=== PATIENT | female | born 1955 | race Caucasian/White ===

== ENCOUNTER 2017-02-16 19:52 | Emergency (ER) | payer BC ==
[~2017-02-16] VITALS: Ht 160 cm; Wt 78.0 kg
[2017-02-16] MEDS ORDERED: CIPR-262 PO (20:04)
[2017-02-16] MEDS ORDERED: HYOS0.1273 PO (20:04)
--- NOTE | 2017-02-16 20:19 | NUR ---
Pt c/o lower Q ABD cramping pain, 06/27, [id number], tender in all Q's, and has nausea w/o vomiting, started around 1630 today. Pt has hx of similar episodes. Pt denies dizziness, CP, no other complaints, no distress noted but pt appears very anxious.
[2017-02-16] MEDS ORDERED: KETOROLAC TROMETHAMINE 15 MG INJ IV ONE (20:45)
[2017-02-16] MEDS ORDERED: IV NORMAL SALINE 1000 ML BAG IV ONE (20:45)
[2017-02-16] MEDS ORDERED: METOCLOPRAMIDE HCL 10 MG/2 ML VIAL IV ONE (20:45)
[2017-02-16 20:53] LABS: *BILIRUBIN,URIN NEGATIVE (NEGATIVE); *BLOOD, URINE 2+ (NEGATIVE); *CLARITY,URINE SLIGHTLY CLOUDY (CLEAR); *COLOR,URINE YELLOW (YELLOW); *KETONES,URINE NEGATIVE (NEGATIVE); *PROTEIN,URINE NEGATIVE (NEGATIVE); *UROBILINOGEN,URINE 0.2 E.U./dl (NORMAL); LEUKOCYTE ESTERASE ,URINE 1+ (NEGATIVE); NITRITE, URINE NEGATIVE (NEGATIVE); PH,URINE 5.5 (5.0-8.0); UGLUCOSE NEGATIVE (NEGATIVE)
[2017-02-16] MEDS ORDERED: KETOROLAC TROMETHAMINE 15 MG INJ ONE (21:07)
[2017-02-16] MEDS ORDERED: METOCLOPRAMIDE HCL 10 MG/2 ML VIAL ONE (21:07)
[2017-02-16] MEDS ORDERED: LORAZEPAM 2 MG/1 ML VIAL IV ONE (21:15)
[2017-02-16 21:18] LABS: ALANINE AMINOTRANSFERASE 17 U/L (14-59); ALKALINE PHOSPHATASE 92 U/L (50-136); ASPARTATE AMINOTRANSFERASE 20 U/L (15-37); BILIRUBIN,DIRECT < 0.1 mg/dL (0.0-0.2); BILIRUBIN,TOTAL 0.4 mg/dL (0.2-1.0); CARBON DIOXIDE 26 mmol/L (21-32); CHLORIDE 105 mmol/L (98-107); CREATININE 0.7 mg/dL (0.6-1.3); GLUCOSE 104 mg/dL (74-106); LIPASE 115 U/L (73-393); POTASSIUM 3.8 mmol/L (3.5-5.1); TOTAL PROTEIN, SERUM 7.8 g/dL (6.4-8.2); UREA NITROGEN, BLOOD 11 mg/dL (7-18)
[2017-02-16 21:19] LABS: BASOPHILS # (AUTO) 0.1 K/uL (0.0-8.0); BASOPHILS % (AUTO) 0.7 % (0.0-2.0); EOSINOPHILS # (AUTO) 0.2 K/uL (0.0-0.7); EOSINOPHILS % (AUTO) 1.8 % (0.0-7.0); HEMATOCRIT 44.7 % (37-47); LYMPHOCYTES # (AUTO) 2.4 K/UL (0.8-4.8); LYMPHOCYTES % (AUTO) 22.5 % (20.5-51.5); MEAN CORPUSCULAR HEMOGLOBIN 28.7 UUG (27.0-31.0); MEAN CORPUSCULAR HGB CONC 34 g/dL (32.0-37.0); MEAN CORPUSCULAR VOLUME 85.7 FL (81.0-99.0); MONOCYTES # (AUTO) 0.6 K/UL (0.1-1.30); MONOCYTES % (AUTO) 5.3 % (0.0-11.0); NEUTROPHILS # (AUTO) 7.2 K/UL (1.8-8.9); NEUTROPHILS % (AUTO) 69.7 % (38.5-71.5); PLATELET COUNT (AUTO) 274 K/UL (150-450); RED BLOOD CELL COUNT(AUTO) 5.22 MIL/UL (4.2-5.4); WHITE BLOOD COUNT (AUTO) 10.5 K/UL (4.0-11.2)
[2017-02-16 21:22] LABS: BACTERIA,URINE MODERATE /HPF (NONE SEEN); MUCUS,URINE MANY /LPF (0-FEW); SQUAMOUS EPITHELIAL CELL,UR MODERATE /HPF (NONE SEEN); WBC,URINE 20-50 /HPF (0-3)
--- NOTE | 2017-02-16 21:31 | NUR ---
Pt pain now 2-310, feels better, no nausea Pt taken to CT
[2017-02-16] MEDS ORDERED: LORAZEPAM 2 MG/1 ML VIAL ONE (22:35)
--- NOTE | 2017-02-16 23:04 | NUR ---
Removed IV, 22g left hand, intact, site okay, bandaged. Gave pt RX and d/c instructions, verbalized understanding
== END 2017-02-16 23:11 | disposition home or self-care (01) ==
LOC: ER 19:53
DX: K52.9 Noninfective gastroenteritis and colitis, unspecified (principal)
CPT/HCPCS: 36415; 71010; 74176; 80048; 80076; 81001; 83605; 83690; 84484; 85025; 87040 ×2; 93005; 96361; 96374; 96375; 99285; A4663; J1885; J2765; J7030; 70030-TC; J2060